=== PATIENT | male | born 1985 | race Caucasian/White ===

== ENCOUNTER 2016-07-09 23:52 | Emergency (ER) | payer OTHER ==
[~2016-07-09] VITALS: Ht 165.1 cm; Wt 80.0 kg
[~2016-07-09 23:52] MED LIST: IBUP-1542 PO; IBUP800T25 PO
[2016-07-10] VITALS: Ht 165.1 cm; Wt 80.0 kg
[2016-07-10] MEDS ORDERED: FLUORESCEIN STRIP LEFT EYE ONE (02:00)
[2016-07-10] MEDS ORDERED: TETRACAINE 0.5% 4 ML OPH LEFT EYE ONE (02:00)
--- NOTE | 2016-07-10 02:55 | ERD ---
ER Documentation Chief Complaint Date/Time DATE: 07/10/16 TIME: 02:41 Chief Complaint left Eye irritation possible foreign body HPI This pleasant 31-year-old male patient presents to emergency department today with left eye irritation, suspected foreign body, patient reports symptoms started yesterday at work while working with metal. Patient is unclear metal or wood or dust was introduced into the eye that he reports pain with blinking, watery eyes, and redness. Patient denies any change in vision other than blurriness related to eye tearing. Patient wears glasses, says he was wearing his glasses while working, patient states he works in construction. Last tetanus was 2 years ago ROS All systems reviewed and are negative except as per history of present illness. Medications Home Meds Active Scripts Ibuprofen* (Motrin*) 800 Mg Tab, 800 MG PO Q6H Y for PAIN AND OR ELEVATED TEMP, #30 TAB Prov:SKYLER [employer]SON [employer] 04/23/15 Ibuprofen* (Ibuprofen*) 600 Mg Tablet, 600 MG PO Q6H Y for PA, #30 TAB Prov:JARROD MARIE [employer] 12/15/14 Allergies Allergies: Coded Allergies: No Known Allergy (Unverified , 12/15/14) PMhx/Soc Hx Alcohol Use: Yes Hx Substance Use: No Hx Tobacco Use: No Smoking Status: Never smoker Physical Exam Vitals Vital Signs Date Time Temp Pulse Resp B/P Pulse Ox O2 Delivery O2 Flow Rate FiO2 07/10/16 00:00 98.0 71 20 133/84 97 Vitals stable, triage notes reviewed Physical Exam Const: No acute distress Head: Atraumatic Eyes: Eye Exam: Left eye Visual Acuity: see nursing notes Visual Hong: Intact in all four quadrants bilaterally Lac ducts/glands: No swelling Lids w/ evertion: Leg edema, positive foreign body at 2100 iris proximal to pupil, mucus noted Conj/[place]: Injected, patient has foreign body at 2100, and iris proximal to pupil Anterior Chamber: Clear [place] readings: Retina exam: No obvious abnormality ENT: Normal External Ears, Nose and Mouth. Neck: Resp: Chest rise and fall symmetrically, clear to auscultation bilaterally Cardio: Abd: Skin: Back: Ext: Neur: Awake and alert Psych: Normal Mood and Affect Results 24 hrs Current Medications Medications (Trade) Dose Ordered Sig/Allie Route PRN Reason Start Time Stop Time Status Last Admin Dose Admin Tetracaine HCl (Tetracaine 0.5% Steri-Unit Kasey) 1 drop ONCE ONCE LEFT EYE 07/10/16 02:00 07/10/16 02:01 DC Fluorescein Sodium (Drrbq-G-Imypn) 1 strip ONCE ONCE LEFT EYE 07/10/16 02:00 07/10/16 02:01 DC Procedures/MDM Foreign Body Removal by Dr. Whitfield: Location: Left eye Anesthesia: Topical tetracaine 0.5% Technique: 19-gauge and cotton swab Complications: Unclear motor and intact post procedure This pleasant 31-year-old male patient presents to emergency department with foreign body in left eye. No acute trauma, keratitis, actinic keratosis not likely. Diagnosis not consistent with history and physical exam. Nurse practitioner attempts foreign body afterwards lamp insulin plan evaluation with cotton swab, ineffective, supervising physician Dr. Whitfield consulted, physician able to remove foreign body, patient will be treated with erythromycin ointment , first dose today in emergency room, follow-up with ophthalmology in 24-48 hours. Return to emergency department for pain, change in vision, or headache. I feel the patient is stable for discharge and outpatient management with ophthalmology I have discussed results, examination findings, the treatment plan with the patient and family present prior to discharge. Indications for emergent reevaluation, side effects of medication were also discussed. All questions were answered. Patient verbalizes understanding and agrees with plan of care. Departure Diagnosis: Primary Impression: Foreign body in cornea Encounter type: initial encounter Laterality: left Qualified Code: T15.02XA - Foreign body in cornea, left, initial encounter Condition: Good Patient Instructions: Corneal Foreign Body, Removed Additional Instructions: Thank you for for coming to [place] for your care today. Please ask your nurse or provider if you have questions about your care today and do not leave until all your questions have been answered. Please use any medications given as directed and follow-up with your doctor (or the doctor you were referred to) in the next 2-3 days. If you do not have a primary care doctor you may follow up at the [facility] (listed below). You may also use motrin and tylenol as needed for fever and/or pain unless instructed otherwise by your provider or nurse. Indications for more urgent follow-up have been discussed, but you may return to the Emergency Department at ANY time for any worrisome or worsening symptoms. If you have abdominal pain, please know that no test or exam you received is perfect and you should follow up within 8 hours for continued pain. If you had any imaging studies today, such as an X-Ray or CT Scan, these studies will be reviewed later by a radiologist. You will be called if there are important findings that were not identified today, so make sure the contact information you provided at registration is correct. If you received any narcotic pain control medicine today, such as Vicodin, Morphine or Dilaudid, your coordination and judgment may be affected for a number of hours. Please do not drive or operate heavy machinery, and you may want someone to assist you at home. If you were given a prescription for narcotic medication, be aware that it is very addictive- use sparingly and only if necessary. SALVADOR MÁRQUEZ July 10, 2016 02:53
[2016-07-10] MEDS ORDERED: ERYTOPOI LEFT EYE (02:57)
[2016-07-10] MEDS ORDERED: ERYTHROMYCIN 1 GM OPH OINT LEFT EYE ONE (03:00)
== END 2016-07-10 03:37 | disposition home or self-care (01) ==
LOC: FTE 23:52
DX: T15.02XA Foreign body in cornea, left eye, initial encounter (principal); X58.XXXA Exposure to other specified factors, initial encounter; Y92.9 Unspecified place or not applicable
CPT/HCPCS: 99283